=== PATIENT | male | born 1960 | race Caucasian/White ===

== ENCOUNTER 2024-03-24 03:09 | Inpatient (IN) | payer MEDICAID ==
[2024-03-24] MEDS ORDERED: Nitroglycerin 0.4 MG Tab.SL SL PRN (03:17)
[2024-03-24] MEDS: Nitroglycerin Lingual Spray 4.9 GM Canister TRLING PRN (03:23)
[2024-03-24 03:25] LABS: BASOPHILS ABSOLUTE AUTO 0.05 10^3/uL (0.00-0.50); BASOPHILS PERCENT AUTO 0.4 % (0-1); EOSINOPHILS ABSOLUTE AUTO 0.31 10^3/uL (0.00-1.50); EOSINOPHILS PERCENT AUTO 2.4 % (0-6); HEMATOCRIT 49.1 % (42.0-52.0); HEMOGLOBIN 16.5 g/dL (14.0-18.0); IMMATURE GRAN ABSOLUTE AUTO 0.04 10^3/uL (0.00-0.49); IMMATURE GRAN PERCENT AUTO 0.3 % (0.0-4.9); LYMPHOCYTES PERCENT AUTO 9.2 % (24-44); MEAN CORPUSCULAR HEMOGLOBIN 29.3 pg (27.0-32.0); MEAN CORPUSCULAR HGB CONC 33.6 g/dL (32.0-36.0); MEAN CORPUSCULAR VOLUME 87.1 fL (83.0-97.0); MONOCYTES ABSOLUTE AUTO 1.08 10^3/uL (0.00-1.50); MONOCYTES PERCENT AUTO 8.3 % (0-10); NEUTROPHILS ABSOLUTE AUTO 10.35 x10^3/uL (1.80-8.00); NEUTROPHILS PERCENT AUTO 79.4 % (41-71); PLATELET COUNT,PLT 263 10^3/uL (150-400); RED BLOOD CELL COUNT 5.64 x10^6/uL (4.50-6.00)
[2024-03-24 03:37] LABS: ALBUMIN 3.4 g/dL (3.4-5.0); BILIRUBIN TOTAL 0.6 mg/dL (0.0-1.0); CALCIUM 8.8 mg/dL (8.4-10.1); CREATININE 1.1 mg/dL (0.7-1.3); EST CRCL DRUG DOSING (CG) 69.63 mL/min; POTASSIUM,K 3.9 mEq/L (3.5-5.0); PROTEIN TOTAL,TP 7.3 g/dL (6.4-8.2)
[2024-03-24 03:39] LABS: INR 1.01 (0.92-1.18); PROTHROMBIN TIME 10.6 SEC (9.3-11.3); PTT,PARTIAL THROMBOPLSTIN TIME 28.5 SEC (20.0-30.0)
[2024-03-24] MEDS: Diltiazem 100 MG in Sodium Chloride 0.9% 100 ML IV SCH (04:26)
[2024-03-24] MEDS ORDERED: Sodium Chloride 0.9% 10 ML Syringe FLUSH PRN (04:39)
[2024-03-24] MEDS ORDERED: Acetaminophen 325 MG Tab PO PRN (04:39)
[2024-03-24] MEDS ORDERED: Ondansetron 4 MG/2 ML SDV IV PRN (04:39)
[2024-03-24] MEDS ORDERED: Ondansetron 4 MG Tab.DIS PO PRN (04:39)
[2024-03-24] MEDS ORDERED: Albuterol 6.7 GM Inhaler INH PRN (04:39)
[2024-03-24] MEDS: Alum Hydrox/Mag Hydrox/Simeth 30 ML, Lidocaine 2% 15 ML PO ONE (06:14)
[2024-03-24] MEDS: metFORMIN 500 MG Tab PO SCH (07:42)
[2024-03-24] MEDS: Pantoprazole 40 MG Vial IVPUSH SCH (07:42)
[2024-03-24] MEDS: Metoprolol Succinate 25 MG Tab.ER PO SCH (07:43)
[2024-03-24] MEDS: atorvaSTATin 20 MG Tab PO SCH (07:43)
[2024-03-24] MEDS: Aspirin 81 MG Tab.EC PO SCH (07:43)
[2024-03-24] MEDS: Apixaban 5 MG Tab PO SCH (07:43)
[2024-03-24] MEDS: Bumetanide 1 MG Tab PO SCH (07:43)
[2024-03-24] MEDS: Spironolactone 25 MG Tab PO SCH (07:43)
[2024-03-24] MEDS: Empagliflozin 10 MG Tab PO SCH (07:44)
[2024-03-24] MEDS: Losartan 25 MG Tab PO SCH (07:44)
[2024-03-24] MEDS: Diltiazem 120 MG Cap.CD PO SCH (13:59)
[2024-03-24] MEDS: Diltiazem 120 MG Cap.CD ONE (14:05)
[2024-03-25 09:15] LABS: BASOPHILS ABSOLUTE AUTO 0.04 10^3/uL (0.00-0.50); BASOPHILS PERCENT AUTO 0.5 % (0-1); EOSINOPHILS ABSOLUTE AUTO 0.44 10^3/uL (0.00-1.50); EOSINOPHILS PERCENT AUTO 5.3 % (0-6); HEMATOCRIT 48.9 % (42.0-52.0); HEMOGLOBIN 16.2 g/dL (14.0-18.0); IMMATURE GRAN ABSOLUTE AUTO 0.01 10^3/uL (0.00-0.49); IMMATURE GRAN PERCENT AUTO 0.1 % (0.0-4.9); LYMPHOCYTES PERCENT AUTO 19.3 % (24-44); MEAN CORPUSCULAR HEMOGLOBIN 28.9 pg (27.0-32.0); MEAN CORPUSCULAR HGB CONC 33.1 g/dL (32.0-36.0); MEAN CORPUSCULAR VOLUME 87.2 fL (83.0-97.0); MONOCYTES ABSOLUTE AUTO 0.95 10^3/uL (0.00-1.50); MONOCYTES PERCENT AUTO 11.5 % (0-10); NEUTROPHILS ABSOLUTE AUTO 5.25 x10^3/uL (1.80-8.00); NEUTROPHILS PERCENT AUTO 63.3 % (41-71); PLATELET COUNT,PLT 240 10^3/uL (150-400); RED BLOOD CELL COUNT 5.61 x10^6/uL (4.50-6.00); WHITE BLOOD CELL COUNT,WBC 8.3 10^3/uL (4.0-11.0)
[2024-03-25 09:23] LABS: CALCIUM 8.5 mg/dL (8.4-10.1); EST CRCL DRUG DOSING (CG) 76.59 mL/min; MAGNESIUM 2.1 mg/dL (1.8-2.4); POTASSIUM,K 4.3 mEq/L (3.5-5.0)
== END 2024-03-25 10:54 | disposition home or self-care (01) | DRG 310 ==
LOC: CC.ED 03:09 → UNDOADMIN 03:51 → CC.MS 03:51
PROVIDERS: ADMIT Physician Assistant Medical; ATTEND Physician Assistant Medical
DX: I48.91 Unspecified atrial fibrillation (principal); I10 Essential (primary) hypertension; E78.00 Pure hypercholesterolemia, unspecified; E11.9 Type 2 diabetes mellitus without complications; F15.90 Other stimulant use, unspecified, uncomplicated; E66.9 Obesity, unspecified; Z68.35 Body mass index [BMI] 35.0-35.9, adult; Z79.01 Long term (current) use of anticoagulants; Z79.899 Other long term (current) drug therapy
CPT/HCPCS: 36415; 71046; 80048; 80053; 83690; 83735; 84484; 85025; 85610; 85730; 87428-QW; 93005; 93010; 99223; 99238; 99285; A9270-GY; J2470; J3490